=== PATIENT | female | born 1985 | race Caucasian/White ===

== ENCOUNTER 2017-09-15 08:00 | Inpatient (IN) ==
[2017-09-15] MEDS ORDERED: *HR* Nalbuphine 20 MG/ML AMPUL IVP PRN (08:22)
[2017-09-15] MEDS ORDERED: Metoclopramide 10 MG/2 ML VIAL IVP PRN (08:22)
[2017-09-15] MEDS ORDERED: Famotidine 20 MG/2 ML VIAL IVP PRN (08:22)
[2017-09-15] MEDS ORDERED: Oxytocin 20 units/ LR 1000 mL 20 UNIT/1,000 ML BAG IVC SCH ×2 (08:45→19:04)
[2017-09-15] MEDS: Ringers Solution, Lactated 1,000 ML IVC SCH ×2 (09:18→16:56)
--- NOTE | 2017-09-15 09:19 | OB/GYN History & Physical ---
Date of Encounter: 09/15/17 Time of Encounter: 08:30 Assessment and Plan (1) 39 weeks gestation of Current visit: Yes Status: Acute (2) Elective induction of labor planned Current visit: Yes Status: Acute Pitocin IV. Risks, benefits, and alternatives discussed with the patient. Pain medication as requested PRN. History of Present Illness Chief complaint: Induction of labor HPI: Ms. Person is a 32 year old female G2 P 1 at 39 4/7 weeks admitted to labor and delivery. She states she has had contractions all weekend which would subside with rest. She denies any leaking fluid or vaginal bleeding. She reports good movement. She denies any complications with the . Past Med Surg Social Fam HX - Past Medical History Source: patient Medical history: migraine Psychiatric history: no psych history - Past Surgical History Surgical History: other (ACL, eye surgery, wisdom teeth) - Social History Smoking Status: Never smoker Smokeless Tobacco Status: No Alcohol use: none Drug use: none Occupational status: employed Current living situation: Home - Independent Activity Level: Independent ambulation - Family History Mother Hx Family Cardiac Disorders: Yes (HTN) Obstetrical History - Pregnancies : 2 Para: 1 Livin Medications and Allergies 3 Allergy/AdvReac Type Severity Reaction Status Date / Time No Known Allergies Allergy Verified 09/19/16 19:43 Review of System OB All systems PM: reviewed and no additional remarkable complaints except as stated Exam - Constitutional Constitutional: well developed, well nourished, no acute distress, average body habitus - HEENT HEENT: EOMI - Lungs Respiratory exam: CTAB - Cardiovascular Cardiovascular exam: RRR - Abdomen Abdomen: Present: bowel sounds normal, gravid, non tender - Vulva Vulva: bilateral: normal - Vagina Vagina: Present: normal moisture - Cervix Dilation: 1 Effacement: 25 Station: -3 Results All other labs normal. - VTE Reasons for not Prescribing Prophylaxis: Treatment not Indicated - Low risk for VTE
[2017-09-15 09:39] LABS: Basophils % 0.4 %; Eosinophils % 0.3 %; Hematocrit 38.3 % (35.3-44.9); Hemoglobin 12.6 g/dL (11.5-15.4); Immature Granulocytes % 0.5 % (0-4); Lymphocytes # 1.5 K/mcL (0.6-4.6); Lymphocytes % 14.8 %; Mean Corpuscular HGB Conc 32.9 g/dL (31.6-35.5); Mean Corpuscular Volume 94.1 fL (83.0-100.0); Mean Platelet Volume 9.9 fL (9.4-12.4); Monocytes # 0.7 K/mcL (0.0-1.3); Monocytes % 6.5 %; Neutrophils # 7.7 K/mcL (1.6-8.9); Platelet Count 231 K/mcL (140-400); Red Blood Count 4.07 M/mcL (3.82-4.97); Red Cell Distribution Width 13.6 % (11.5-14.5); Segmented Neutrophils % 77.5 %
[2017-09-15 09:47] LABS: Amphetamine Screen,Urine Negative ng/mL (Cutoff=1000); Barbiturate Screen,Urine Negative ng/mL (Cutoff=200); Benzodiazepines Screen,Urine Negative ng/mL (Cutoff=200); Cannabinoid Screen,Urine Negative ng/mL (Cutoff = 50); Cocaine Screen,Urine Negative ng/mL (Cutoff= 300); Opiate Screen,Urine Negative ng/mL (Cutoff=300); Phencyclidine Screen,Urine Negative ng/mL (Cutoff=25)
--- NOTE | 2017-09-15 11:18 | Anesthesia Evaluation PreOp ---
Date of Encounter: 09/15/17 Time of Encounter: 11:00 - Past History Planned Operation: VICTORIANO Cardiac History: Hyperlipidemia Pulmonary History: Denies Any Significant HX CONSUMER AFFAIRS DIRECTOR History: Denies Any Significant HX Other Medical History: GERD (Controlled on Zantac) Anesthesia History: No Prior Anesthetic Complications, Past Anesthesia (ACL, Eye surgery) : Yes Alcohol Use: none Drug use: none Medications and Allergies Fluticasone Propionate [Flonase Allergy Relief] 9.9 ml NS 09/15/17 [History] Vit/Iron Fumarate/FA [ Tablet] 1 each PO 09/15/17 [History] Ranitidine HCl [Zantac 75] 75 mg PO 09/15/17 [History] 3 Allergy/AdvReac Type Severity Reaction Status Date / Time No Known Allergies Allergy Verified 09/19/16 19:43 - Meds/Allergy Pre-op Review Medications Reviewed: Yes Allergies Reviewed: Yes Beta Blockers on Current Med List: No Anesthesia Results - Labs 09/15/17 08:40 Anesthesia Exam Height: 1.65m Weight: 96.6kg NPO (# of Hours): >4hr Pain Scale: 3 Pain Scale Used: Numeric (1 - 10) - HEENT Pupil (Motor): Pupils equal Mallampati: II Teeth: Normal Oral Opening: Greater than 3 - CONSUMER AFFAIRS DIRECTOR LOC: Oriented CONSUMER AFFAIRS DIRECTOR Motor: Normal RUE, Normal LUE, Normal RLE, Normal LLE, Normal Face CONSUMER AFFAIRS DIRECTOR Sensory: Normal: RUE, LUE, RLE, LLE, Face - Cardiac Rhythm: Regular Murmur: None JVD: No Carotid Bruit: No - Pulmonary Breath Sounds: bilateral Clear Respiratory Effort: Symmetrical Anesthesia Assess/Plan ASA Score: 2 Modified Patt Scale for Level of Consciousness: Cooperative, oriented, and tranquil Anesthetic Plan: Regional Autologous Blood: Yes Monitoring Plan: Standard Monitors Recovery Plan: Other
[2017-09-15] MEDS ORDERED: EPHEDrine 50 MG/ML VIAL IVP PRN (11:19)
[2017-09-15] MEDS ORDERED: Ringers Solution, Lactated 500 ML IVC ONE (11:19)
[2017-09-15] MEDS ORDERED: *HR* Ropivacaine/PF 0.2% 10 ML AMPUL EP ONE (11:19)
[2017-09-15] MEDS ORDERED: Epidural Premix (fent/bupiv) 110 ML EP SCH (11:30)
--- NOTE | 2017-09-15 12:56 | OB Labor Progress Note ---
Date of Encounter: 09/15/17 Time of Encounter: 12:54 Labor Progress Note - Subjective Subjective: Patient denies any complaints. She states the contractions are 2/10 pain. She has no other concerns. - Cervix Cervix: 2/50/-3 vertex - Heart Tones Heart Tones: 120, category 1 - Henderson Henderson: Infrequent with pitocin at 10 milliunits/minute - Interventions Interventions: AROM with small amount of clear fluid - Plan Plan: Continue pitocin induction
[2017-09-15] MEDS ORDERED: Epidural Premix (fent/bupiv) 110 ML EP ONE (15:25)
--- NOTE | 2017-09-15 16:03 | Anesthesia Procedures ---
Date of Encounter: 09/15/17 Time of Encounter: 15:25 Procedures: Anesthesia - Epidural/Spinal Patient ID/Chart reviewed: Yes Patient examined: Yes OB Eval: Gestational age: 39.4 OB Eval: : 2 OB Eval: Hx Para: 1 OB Eval: Dilated at (cm): 4 OB Eval: Contractions: Non-stressed pattern Consent Obtained: Yes Supplemental Oxygen: None/Room Air Site Prep: Aseptic Technique, Sterile prep and drape, 0.5% Chlorhexidine/Alcohol Patient position: upright Local Anesthetic: Lidocaine 1% Amount of Local Anesthetic used: 3 Touhy Needle Gauge: 18 Touhy Needle Depth (cm): 8 Catheter Depth at Skin (cm): 15 Test Dose (1.5% Lido + Epi): Volume given (mls): 4 Test Dose Result: Negative Loading Dose: Other: Ropivacaine 0.5% 9mL Loading Dose Administered: Thru Catheter Infusion Med: 0.125% Bupivacaine w/ 2 mcg/ml Fentanyl Infusion Rate (mls/hr): 15 (Bolus 4mL q15min; Max 3/hr) Catheter Secured in Place: Tegaderm Interspace Used: L2-L3 Loss of Resistance (SILVIA): Yes Blood: No CSF: No Paresthesia: No Procedure: x2 attempts. Patient tolerated well. Vitals + FHT's: VSS and FHR stable throughout. See nursing documentation.
[2017-09-15] MEDS ORDERED: *HR* FentaNYL (PF) 100 MCG/2 ML VIAL ONE (17:25)
--- NOTE | 2017-09-15 17:35 | Anesthesia Progress Note ---
Date of Encounter: 09/15/17 Time of Encounter: 17:34 Anesthesia Note - Note Note: 09/15/17 17:34 Bolus for left lower abdominal pain. Ropivacaine 0.5% with fentanyl 100mcg. 8mL total volume.
--- NOTE | 2017-09-15 18:57 | OB/GYN Procedure Note ---
Delivery - Delivery Date: 09/15/17 Provider: Rebeca Lin Intrapartum events: none Delivery induction: AROM, oxytocin Delivery monitor: external FHT, external uterine, internal FHT Anesthesia: epidural Estimated Blood Loss: 300 - (s) Infant A Delivery Date: 09/15/17 Delivery Time: 18:13 Presentation: vertex Position: JAMIA Route of delivery: Gender: Female Viability: Viable Pounds: 6 Ounces: 12 Shoulder Dystocia: not encountered Specimens collected: cord blood Placenta: spontaneous Cord: 3 umbilical vessels - Repair Episiotomy: none Laceration Description: Periurethral, Perineal - 2nd Degree - Complications Delivery complications: none Delivery comments: Called to room with patient complete and +2 station. Under maternal effort she delivered a viable female weighing 6 lbs. 12 oz. and Apgars 9 and 9 at one and 5 minutes respectively over a first-degree perineal laceration. Following delivery of the head the was bulb suctioned. There was no nuchal cord or short dystocia encountered. Once delivered the was placed on mom's abdomen. Cord clamping was delayed and then double clamped and cut. Cord blood was collected. Placenta delivered spontaneously, complete, and intact with a three-vessel cord. She had an anterior labral laceration that was repaired in an interrupted fashion using 3-0 Monocryl. Second-degree perineal laceration was repaired using 3-0 Vicryl. Sponge and needle counts were correct at the end of the procedure. Mother and infant are recovering in the LDR in stable condition. - Disposition Mom disposition: stable in LDR [place] disposition: stable in LDR
[2017-09-15] MEDS ORDERED: Acetaminophen 325 MG TABLET PO PRN (19:04)
[2017-09-15] MEDS ORDERED: Rho Immune Globulin 1,500 UNIT SYRINGE IM PRN (19:04)
[2017-09-15] MEDS: Ibuprofen 600 MG TABLET PO PRN (20:38)
[2017-09-16] MEDS: Ibuprofen 600 MG TABLET PO PRN ×2 (01:56→07:51)
--- NOTE | 2017-09-16 08:53 | Discharge Summary ---
Date of Encounter: 09/16/17 Time of Encounter: 08:51 - Discharge Diagnosis (1) Vaginal delivery Priority: Primary Status: Acute Comments: Pt reports feeling well this am. Pain well controlled with motrin, well established. Pt meeting all milestones. (2) Mother currently breast-feeding Priority: Secondary Status: Acute - Discharge Medications Prescriptions: Breast Pump [BREAST PUMP] 1 each .ROUTE AD #1 each Home Medications: Fluticasone Propionate [Flonase Allergy Relief] 9.9 ml NS 09/15/17 [History] Vit/Iron Fumarate/FA [ Tablet] 1 each PO 09/15/17 [History] Benzocaine/Menthol [place] [Dermoplast [place]] 1 appl TP QID PRN aerosol 09/16/17 [Rx] Breast Pump [BREAST PUMP] 1 each .ROUTE AD #1 each 09/16/17 [Rx] Docusate [Colace] 100 mg PO BID capsule 09/16/17 [Rx] Ibuprofen [Motrin] 600 mg PO Q6HR PRN tablet 09/16/17 [Rx] Allergies/Adverse Reactions: 3 Allergy/AdvReac Type Severity Reaction Status Date / Time No Known Allergies Allergy Verified 09/19/16 19:43 Data Procedures and tests throughout hospitalization: Laboratory Tests 09/15/17 09/15/17 09/15/17 08:40 08:40 19:10 WBC 10.0 RBC 4.07 Hgb 12.6 Hct 38.3 MCV 94.1 MCH 31.0 MCHC 32.9 RDW 13.6 Plt Count 231 MPV 9.9 Immature Gran % 0.5 Seg Neutrophils % 77.5 Lymphocytes % 14.8 Monocytes % 6.5 Eosinophils % 0.3 Basophils % 0.4 Neutrophils # 7.7 Lymphocytes # 1.5 Monocytes # 0.7 Eosinophils # 0.0 Basophils # 0.0 Urine Opiates Screen Negative Ur Barbiturates Screen Negative Ur Phencyclidine Scrn Negative Ur Amphetamines Screen Negative U Benzodiazepines Scrn Negative Urine Cocaine Screen Negative U Marijuana (THC) Screen Negative Hep Bs Antigen Baby's Blood Type O RH NEGATIVE Mother's Blood Type O RH NEGATIVE Rhogam Indicated NO 09/15/17 19:10 WBC RBC Hgb Hct MCV MCH MCHC RDW Plt Count MPV Immature Gran % Seg Neutrophils % Lymphocytes % Monocytes % Eosinophils % Basophils % Neutrophils # Lymphocytes # Monocytes # Eosinophils # Basophils # Urine Opiates Screen Ur Barbiturates Screen Ur Phencyclidine Scrn Ur Amphetamines Screen U Benzodiazepines Scrn Urine Cocaine Screen U Marijuana (THC) Screen Hep Bs Antigen Nonreactive Baby's Blood Type Mother's Blood Type Rhogam Indicated Labs on day of discharge: Labs from last 24 hours 09/15/17 09/15/17 09/15/17 19:10 19:10 08:40 WBC 10.0 RBC 4.07 Hgb 12.6 Hct 38.3 MCV 94.1 MCH 31.0 MCHC 32.9 RDW 13.6 Plt Count 231 MPV 9.9 Immature Gran % 0.5 Seg Neutrophils % 77.5 Lymphocytes % 14.8 Monocytes % 6.5 Eosinophils % 0.3 Basophils % 0.4 Neutrophils # 7.7 Lymphocytes # 1.5 Monocytes # 0.7 Eosinophils # 0.0 Basophils # 0.0 Urine Opiates Screen Ur Barbiturates Screen Ur Phencyclidine Scrn Ur Amphetamines Screen U Benzodiazepines Scrn Urine Cocaine Screen U Marijuana (THC) Screen Hep Bs Antigen Nonreactive Baby's Blood Type O RH NEGATIVE Mother's Blood Type O RH NEGATIVE Rhogam Indicated NO 09/15/17 08:40 WBC RBC Hgb Hct MCV MCH MCHC RDW Plt Count MPV Immature Gran % Seg Neutrophils % Lymphocytes % Monocytes % Eosinophils % Basophils % Neutrophils # Lymphocytes # Monocytes # Eosinophils # Basophils # Urine Opiates Screen Negative Ur Barbiturates Screen Negative Ur Phencyclidine Scrn Negative Ur Amphetamines Screen Negative U Benzodiazepines Scrn Negative Urine Cocaine Screen Negative U Marijuana (THC) Screen Negative Hep Bs Antigen Baby's Blood Type Mother's Blood Type Rhogam Indicated Date of admission: 09/15/17 08:12 Primary care physician: Lokesh Santacruz CNP Consults: 09/15/17 19:04 Consult to [place] Tender [CONS] Routine Comment: Vaginal delivery, consult needed Discharging clinician: Shaye Faulkner Anticipated date of discharge: 09/16/17 - Patient Status Disposition: Home, Self-Care Condition: Good Functional capacity at discharge: independent ambulation Overall status at discharge: patient is progressing back to baseline - Discharge Instructions Follow Up With: Lokesh Santacruz CNP [Primary Care Provider] - Rebeca Lin DO [Partnered Physician] - - Diet and Activity Activity: increase activity as tolerated Diet: advance to your usual diet Hospital Course Reason for admission: induction of labor Delivery: Episiotomy: none Laceration: 2nd degree Other procedures: none complications: none Discharge diagnosis: IUP at term delivered baby: female Hospital course: Delivery - Delivery Date: 09/15/17 Provider: Rebeca Lin Intrapartum events: none Delivery induction: AROM, oxytocin Delivery monitor: external FHT, external uterine, internal FHT Anesthesia: epidural Estimated Blood Loss: 300 - (s) Infant A Delivery Date: 09/15/17 Infant Delivery Time: 18:13 Presentation: vertex Position: JAMIA Route of delivery: Gender: Female Viability: Viable Pounds: 6 Ounces: 12 Shoulder Dystocia: not encountered Specimens collected: cord blood Placenta: spontaneous Cord: 3 umbilical vessels - Repair Episiotomy: none Laceration Description: Periurethral, Perineal - 2nd Degree - Complications Delivery complications: none - Disposition Mom disposition: stable in LDR disposition: stable in LDR Time Attestation: Total time spent providing and/or coordinating discharge services: Time Spent: Less than 30 minutes Exam - Constitutional Vitals: Temp Pulse Resp BP Pulse Ox 97.8 F 70 18 133/82 100 09/16/17 04:10 09/16/17 04:10 09/16/17 04:10 09/16/17 04:10 09/16/17 04:10 General appearance IM: A&O X 3 - Respiratory Respiratory exam: Present: CTAB - Cardiovascular Cardiovascular exam IM: Present: RRR, +S1, +S2 - GI/Abdominal GI/Abdominal exam IM: soft - Rectal Rectal exam: deferred - External exam: normal external exam Uterine Tone: Firm Uterus Position: 1 Finger Below Umbilicus - Extremities Exam Extremities exam IM: Present: normal inspection - Neurological Exam Neurological exam: normal gait, oriented X3 - Psychiatric Additional comments: reports good mood
[2017-09-16] MEDS ORDERED: Benzocaine/Menthol 56 GM AEROSOL SPRAY TP PRN (08:56)
[2017-09-16] MEDS ORDERED: Prenatal Vit/FA 1 EACH TABLET PO SCH (09:00)
[2017-09-16 16:51] VITALS: BP 118/68
== END 2017-09-16 16:15 | disposition home or self-care (01) | DRG 775 ==
LOC: 1NENULAB 08:12 → 1NENUOBS 20:25
PROVIDERS: ADMIT Obstetrics & Gynecology; ATTEND Obstetrics & Gynecology